=== PATIENT | male | born 1950 | race Hispanic/Latino ===

== ENCOUNTER 2016-09-14 09:54 | Outpatient (CLI) | payer MEDICARE ==
--- NOTE | 2016-09-15 07:34 | RAD ---
CERVICAL SPINE FOUR VIEWS HISTORY: Cervicalgia. COMPARISON: None. FINDINGS: There is limited and incomplete evaluation of the cervical spine, despite performing a Sw immer's view. There is no prevertebral soft tissue swelling. The cervical spine is adequately demo nstrated from the C1 body to the C6 level, on the lateral projection. There is mild loss of disk sp shana height and osteophyte formation at C5-C6 and C6-C7. Vertebral body height is maintained. There is no fracture. There is possible incomplete segmentation of C2-C3. The predental space is normal. On the open-mouth projection, evaluation of the odontoid process is limited. The lateral masses o f C1 and C2 articulate appropriately. On the AP projection, there are degenerative changes of the p osterior elements. Carotid calcifications are noted bilaterally. IMPRESSION Degenerative changes of the cervical spine, as above. Incomplete evaluation. Consider MRI. POS: NILDA
--- NOTE | 2016-09-15 07:36 | RAD ---
LUMBAR SPINE THREE VIEWS: History: Low back pain. Comparison: None. FINDINGS: Five lumbar type vertebral bodies. Vertebral body height is maintained. Disc space heights are pre served. Osteophytes are noted. No spondylolisthesis or spondylosis. IMPRESSION: Osteophyte formation without evidence of fracture. Consider MRI if clinically warranted. POS: NILDA
== END 2016-09-14 09:55 | disposition home or self-care (01) ==
LOC: NAV RAD 09:54
PROVIDERS: ATTEND Specialist
DX: M54.2 Cervicalgia (principal); M54.5 Low back pain; M47.812 Spondylosis without myelopathy or radiculopathy, cervical region
CPT/HCPCS: 72040; 72100